=== PATIENT | female | born 1955 | race Caucasian/White ===

== ENCOUNTER 2025-04-23 17:05 | Emergency (ER) | payer OTHER ==
[~2025-04-23] VITALS: Ht 167.6 cm; Wt 59.4 kg
[2025-04-23 17:26] VITALS: BP 134/89; O2SAT 99
[2025-04-23] MEDS ORDERED: ATORVASTATIN CA10 MG (17:26)
[2025-04-23] MEDS ORDERED: MAXITROL EYE DRO5 ML OP (20:18)
== END 2025-04-23 20:24 | disposition home or self-care (01) ==
LOC: ER 17:05
DX: H53.8 Other visual disturbances (principal); H40.89 Other specified glaucoma